=== PATIENT | female | born 1990 ===

== ENCOUNTER 2021-01-01 16:02 | Emergency (ER) | payer OTHER, BC ==
[~2021-01-01] VITALS: Ht 162.6 cm; Wt 63.5 kg
== END 2021-01-01 18:55 | disposition home or self-care (01) ==
LOC: ER 16:02
DX: S43.52XA Sprain of left acromioclavicular joint, initial encounter (principal); X50.0XXA Overexertion from strenuous movement or load, initial encounter
CPT/HCPCS: 73030; 99283-25